=== PATIENT | female | born 1980 | race Hispanic/Latino ===

== ENCOUNTER 2019-06-26 21:38 | Emergency (ER) | payer SELFPAY ==
[~2019-06-26] VITALS: Ht 157.5 cm; Wt 68.0 kg
[2019-06-26] MEDS ORDERED: ONDANSETRON HCL INJ 2MG/ML 2ML 2 MG/ML VIAL IV STA (21:58)
[2019-06-26] MEDS ORDERED: KETOROLAC TROMETHAMINE 30 MG/ML VIAL IV STA (21:58)
[2019-06-26] MEDS ORDERED: SODIUM CHLORIDE 0.9% 1000ML 1,000 ML IV STA (21:58)
--- NOTE | 2019-06-26 22:00 | Emergency Department Note ---
History of Present Illnes History of Present Illness Chief Complaint: Abdominal Complaints History of Present Illness This is a 38 year old female presents to the ED for two day h/o of fevers suprapubic pain and vaginal spotting. History limited by: language barrier Eye Physician Required: Yes Onset (how long ago): day(s) (2) Location: suprapubic Radiation: abdomen Severity: moderate Onset quality: gradual Duration (how long): day(s) (2) Timing of current episode: constant Progression: worsening Chronicity: new Context: recent illness, recent surgery, recent immobilization, recent travel, trauma/injury, new medications, hx of DVT/PE, non-compliance w/ medications, other Relieving factors: none Exacerbating factors: none Associated symptoms: fever/chills Treatments prior to arrival: none Past Medical/Family History Physician Review I have reviewed the patient's past medical and family history. Any updates have been documented here. Past Medical History Recent Fever: Yes Clinical Suspicion of Infectio: No Past Medical History: None Past Surgical History: Tubal Ligation Social History Smoking Cessation: Never Smoker Alcohol Use: None Any Illegal Drug Use: No Review of Systems Review of Systems Constitutional: fever EENTM: no symptoms Cardiovascular: no symptoms Respiratory: no symptoms Gastrointestinal: abdominal pain Genitourinary: other (vaginal spotting) Musculoskeletal: no symptoms Neurological: no symptoms Psychological: no symptoms Endocrine: no symptoms Hematological/Lymphatic: no symptoms Review of other systems All other systems reviewed and negative. Physical Exam Related Data Allergies: Coded Allergies: No Known Allergies (Unverified , 06/26/19) Triage Vital Signs Vital Signs Date Time Temp Pulse Resp B/P (MAP) Pulse Ox O2 Delivery O2 Flow Rate FiO2 06/26/19 21:58 101.8 104 18 141/79 99 Vital signs reviewed: Yes Physical Exam CONSTITUTIONAL Constitutional: well-developed, well-nourished HENT HENT: normocephalic, atraumatic, oropharynx clear/moist, nose normal HENT L/R: left ext ear normal, right ext ear normal EYES Eyes: PERRL, conjunctivae normal NECK Neck: ROM normal PULMONARY Pulmonary: effort normal, breath sounds normal CARDIOVASCULAR Cardiovascular: regular rhythm, heart sounds normal, capillary refill normal, normal rate GASTROINTESTINAL Abdominal: soft, tender (suprapubic) GENITOURINARY Genitourinary: exam deferred SKIN Skin: warm, dry MUSCULOSKELETAL Musculoskeletal: ROM normal NEUROLOGICAL Neurological: alert, oriented x 3, no gross motor or sensory deficits PSYCHOLOGICAL Psychological: mood/affect normal, judgement normal Results Laboratory Lab results reviewed: Yes Laboratory comments lactic acid 2.9. UA : few bacteria Imaging Imaging results reviewed: Yes Impressions [facility] [address] [address] Patient Name: FE SIMMS MR #: [id number] : 1980 Age/Sex: 38/F Req #: [id number] Adm Physician: Ordered by: NATALIO CORONA DO Report #: [id number] Location: ER Room/Bed: Procedure: [id number] CT/CT ABDOMEN/PELVIS W Exam Date: 06/26/19 Exam Time: 2350 REPORT STATUS: Signed EXAM: CT Abdomen and Pelvis WITH contrast INDICATION: Fever, right lower quadrant pain, dysuria. Query appendicitis. COMPARISON: None. TECHNIQUE: Abdomen and pelvis were scanned utilizing a multidetector helical scanner from the lung base to the pubic symphysis after administration of IV contrast. Coronal and sagittal reformations were obtained. Routine protocol was performed. Scan was performed during portal venous phase. IV CONTRAST: 100 cc of Isovue-370 ORAL CONTRAST: Water COMPLICATIONS: None RADIATION DOSE: Total DLP: 315.5 mGy*cm Estimated effective dose: (DLP x 0.015 x size factor) mSv CTDIvol has been reviewed. It is below the limits set by the Radiation Protocol Committee (RPC). FINDINGS: LINES and TUBES: None. LOWER THORAX: Unremarkable HEPATOBILIARY: Mild hepatic steatosis. No evidence of focal lesion. No biliary ductal dilation. GALLBLADDER: Decompressed. No radio-opaque stones or sludge. No wall thickening. SPLEEN: No splenomegaly. PANCREAS: No focal masses or ductal dilatation. ADRENALS: No adrenal nodules KIDNEYS/URETERS: Kidneys enhance symmetrically. No evidence of hydronephrosis, solid mass, or stone. GI TRACT: Distended stomach with enteric contents. No evidence of wall thickening or distension. Appendix is normal. Moderate amount of stool in the colon. PELVIC ORGANS/BLADDER: Mild wall thickening and stranding in the anterior bladder without discrete nodule. LYMPH NODES: No lymphadenopathy. VESSELS: Retroaortic left renal vein. PERITONEUM / RETROPERITONEUM: No free air or fluid. BONES AND SOFT TISSUES: Unremarkable. CONCLUSION: Normal appendix. Mild wall thickening and stranding in the anterior bladder without discrete nodule could represent cystitis. Suggest correlation with urinalysis in this patient with fever and dysuria. Distended stomach with enteric contents. Mild hepatic steatosis. Signed by: Dr. Lise Ruth MD on 06/27/2019 12:36 AM Dictated By: LISE RUTH MD Transcribed By: ESCOBAR on 06/27/1935 COPY TO: NATALIO CORONA DO~ Critical Care Time Total Critical Care Time (min): 31 Critcal care necessary due to: metabolic failure Assessment & Plan Assessment & Plan Final Impression: (1) Lactic acid acidosis (2) Cystitis Assessment & Plan Patient given fluids and abx. Lactic acid elevated. Repeat lactic acid wnl. Patient with marked improvement in symptoms. Plan to discharge to home. Depart Disposition: HOME, SELF-CARE Last Vital Signs Date Time Temp Pulse Resp B/P (MAP) Pulse Ox O2 Delivery O2 Flow Rate FiO2 06/27/19 02:35 63 17 100 06/26/19 21:58 101.8 141/79 Medications in the ED Sodium Chloride 1,000 ml @ 0 mls/hr Q0M STAT IV Last administered on 06/26/19at 22:25; Admin Dose 999 MLS/HR; Start 06/26/19 at 21:58; Stop 06/26/19 at 21:59; Status DC Ondansetron HCl 4 mg ONCE STAT IV Last administered on 06/26/19at 22:25; Admin Dose 4 MG; Start 06/26/19 at 21:58; Stop 06/26/19 at 22:13; Status DC Ketorolac Tromethamine 30 mg ONCE STAT IV Last administered on 06/26/19at 22:25; Admin Dose 30 MG; Start 06/26/19 at 21:58; Stop 06/26/19 at 22:13; Status DC Acetaminophen 650 mg ONCE ONCE PO Last administered on 06/26/19at 22:25; Admin Dose 650 MG; Start 06/26/19 at 22:15; Stop 06/26/19 at 22:16; Status DC Piperacillin Sod/ Tazobactam Sod 50 ml @ 50 mls/hr Q6H IV Last administered on 06/27/19at 00:50; Admin Dose 50 MLS/HR; Start 06/26/19 at 23:33; Stop 06/27/19 at 02:44; Status DC Morphine Sulfate 4 mg ONCE STAT IV ; Start 06/26/19 at 23:38; Stop 06/27/19 at 00:00; Status DC Sodium Chloride 1,000 ml @ 100 mls/hr Q10H IV Last administered on 06/27/19at 00:50; Admin Dose 999 MLS/HR; Start 06/26/19 at 23:45; Stop 06/27/19 at 02:44; Status DC NATALIO CORONA DO June 26, 2019 22:00
[2019-06-26] MEDS ORDERED: ACETAMINOPHEN 325 MG TAB PO ONE (22:15)
[2019-06-26 22:28] LABS: BASOPHILS # (AUTO) 0.1 (0.0-0.1); BASOPHILS % 0.6 % (0.0-1.0); EOSINOPHILS % 0.4 % (0.0-6.0); HEMATOCRIT 31.3 % (34.2-44.1); HEMOGLOBIN 9.6 g/dL (12.0-16.0); LYMPHOCYTES # (AUTO) 1.4 (1.0-3.2); LYMPHOCYTES % 17.9 % (18.0-39.1); MEAN CORPUSCULAR HEMOGLOBIN 23.5 pg (28-32); MEAN CORPUSCULAR HGB CONC 30.7 g/dL (31-35); MEAN CORPUSCULAR VOLUME 76.5 fL (81-99); MONOCYTES # (AUTO) 0.8 (0.2-0.8); MONOCYTES % 9.4 % (4.4-11.3); NEUTROPHILS # (AUTO) 5.7 (2.1-6.9); NEUTROPHILS % 71.1 % (38.7-80.0); PLATELET COUNT 341 x10e3/uL (140-360); RED BLOOD COUNT 4.09 x10e6/uL (3.6-5.1); RED CELL DISTRIBUTION WIDTH 14.4 % (11.7-14.4)
[2019-06-26 22:46] LABS: ALANINE AMINOTRANSFERASE 43 IU/L (0-55); ALBUMIN 3.2 g/dL (3.5-5.0); ALBUMIN/GLOBULIN RATIO 0.7 (0.8-2.0); ALKALINE PHOSPHATASE 113 IU/L (40-150); ANION GAP 14.6 mmol/L (8-16); BLOOD UREA NITROGEN 7 mg/dL (7-26); BUN/CREATININE RATIO 9 (6-25); CALCIUM 9.3 mg/dL (8.4-10.2); CARBON DIOXIDE 27 mmol/L (22-29); CHLORIDE 98 mmol/L (98-107); CREATININE, SERUM 0.76 mg/dL (0.57-1.11); EST GLOMERULAR FILTRATION RATE > 60 ML/MIN (60-); GLUCOSE 174 mg/dL (74-118); POTASSIUM 4.6 mmol/L (3.5-5.1); SODIUM 135 mmol/L (136-145)
[2019-06-26] MEDS ORDERED: PIPER-TAZ 3.375 GM 50 ML IV SCH (23:33)
[2019-06-26 23:34] LABS: BACTERIA,URINE FEW /HPF; BILIRUBIN,URINE NEGATIVE (NEGATIVE); CLARITY,URINE CLEAR (CLEAR); COLOR,URINE YELLOW (YELLOW); EPITHELIAL CELLS,URINE FEW /LPF; KETONES,URINE NEGATIVE (NEGATIVE); LEUKOCYTE ESTERASE ,URINE NEGATIVE (NEGATIVE); NITRITE,URINE NEGATIVE (NEGATIVE); PREGNANCY TEST, URINE NEGATIVE (NEGATIVE); PROTEIN,URINE DIPSTICK NEGATIVE (NEGATIVE); RBC,URINE 0-5 /HPF (0-5); URINE UROBILINOGEN 0.2 mg/dL (0.2 - 1)
[2019-06-26] MEDS ORDERED: MORPHINE SULFATE INJ 4 MG/ML INJ 1ML IV STA (23:38)
[2019-06-26] MEDS ORDERED: SODIUM CHLORIDE 0.9% 1000ML 1,000 ML IV SCH (23:45)
[2019-06-27 00:30] LABS: WBC,URINE (MAN) 21-50 /HPF (0-5)
--- NOTE | 2019-06-27 00:40 | Diagnostic Imaging Report ---
EXAM: CT Abdomen and Pelvis WITH contrast INDICATION: Fever, right lower quadrant pain, dysuria. Query appendicitis. COMPARISON: None. TECHNIQUE: Abdomen and pelvis were scanned utilizing a multidetector helical scanner from the lung base to the pubic symphysis after administration of IV contrast. Coronal and sagittal reformations were obtained. Routine protocol was performed. Scan was performed during portal venous phase. IV CONTRAST: 100 cc of Isovue-370 ORAL CONTRAST: Water COMPLICATIONS: None RADIATION DOSE: Total DLP: 315.5 mGy*cm Estimated effective dose: (DLP x 0.015 x size factor) mSv CTDIvol has been reviewed. It is below the limits set by the Radiation Protocol Committee (RPC). FINDINGS: LINES and TUBES: None. LOWER THORAX: Unremarkable HEPATOBILIARY: Mild hepatic steatosis. No evidence of focal lesion. No biliary ductal dilation. GALLBLADDER: Decompressed. No radio-opaque stones or sludge. No wall thickening. SPLEEN: No splenomegaly. PANCREAS: No focal masses or ductal dilatation. ADRENALS: No adrenal nodules KIDNEYS/URETERS: Kidneys enhance symmetrically. No evidence of hydronephrosis, solid mass, or stone. GI TRACT: Distended stomach with enteric contents. No evidence of wall thickening or distension. Appendix is normal. Moderate amount of stool in the colon. PELVIC ORGANS/BLADDER: Mild wall thickening and stranding in the anterior bladder without discrete nodule. LYMPH NODES: No lymphadenopathy. VESSELS: Retroaortic left renal vein. PERITONEUM / RETROPERITONEUM: No free air or fluid. BONES AND SOFT TISSUES: Unremarkable. CONCLUSION: Normal appendix. Mild wall thickening and stranding in the anterior bladder without discrete nodule could represent cystitis. Suggest correlation with urinalysis in this patient with fever and dysuria. Distended stomach with enteric contents. Mild hepatic steatosis. Signed by: Dr. Carolina Pope MD on 06/27/2019 12:36 AM
[2019-06-27 02:35] VITALS: BP 114/71
[2019-06-27] MEDS ORDERED: SODIUM CHLORIDE 0.9% 50ML 50 ML ONE (05:53)
[2019-06-27] MEDS ORDERED: IOPAMIDOL 370 MG/ML 200 ML INFUS..BTL INJ ONE (05:53)
== END 2019-06-27 02:38 | disposition home or self-care (01) ==
LOC: ER 21:38
DX: R50.9 Fever, unspecified (principal); E87.2 Acidosis; R30.0 Dysuria; N30.90 Cystitis, unspecified without hematuria
CPT/HCPCS: 36415; 74177; 80053; 81001; 81025; 83605; 85025; 87040; 99284; J1885; J2405; J2543; J7030 ×2; Q9967